=== PATIENT | female | born 1990 | race Caucasian/White ===

== ENCOUNTER → 2016-11-10 | Outpatient (CLI) | payer OTHER ==
[~2016-11-10] MED LIST: AMOXICILLIN500 MG PO; ANUSOL-HC25 MG RC; ATARAX,VISTARIL10 MG PO; ATARAX,VISTARIL50 MG PO; AUGMENTIN 875 M1 TA1 PO; AUGMENTIN 875 M1 TAB PO; AUGMENTIN 875875 MG PO; AUGMENTIN XR 101 TER PO; BACTRIM DS 8001 TAB PO; CELEXA20 MG PO; CELEXA40 MG PO; CIPRO250 MG PO; CIPRO500 MG PO; CLARINEX D PO; CLARITIN10 MG PO; CLEOCIN150 MG PO; COMPAZINE25 MG RC; CORTISPORIN 1%-10 M1 OT; DONNATAL1 TAB PO; FIORICET 325 MG1 TAB PO; HYDROCODONE BIT1 T11 PO; KEFLEX500 MG PO; KLONOPIN0.5 MG PO; MACROBID100 M1 PO; METHERGINE0.2 MG PO; MIRALAX POWDER255 GM PO; MOTRIN800 MG PO; NEXIUM40 MG PO; NKHM; NORCO 325 MG-51 TAB PO; NORCO 5-325 TA1 EACH PO; PANTOPRAZOLE SO40 MG PO; PANTOPRAZOLE40 M1 PO; PEN-VEE K500 MG PO; PERCOCET 325 MG1 TA6 PO; PERCOCET 325 MG1 TA7 PO; PREDNISONE10 MG PO; PREMARIN1.25 MG PO; PRENATAL1 TA1 PO; PRENATAL1 TA7 PO; PRENTAL 1 PLUS1 TAB PO; PRILOSEC40 MG PO; PROTONIX20 MG PO; RESTORIL15 MG PO; RESTORIL30 MG PO; TESSALON PERLE100 M1 PO; TOPAMAX25 M3 PO; VIBRAMYCIN100 MG PO; WELLBUTRIN75 MG PO; XANAX0.5 MG PO; XANAX1 MG PO; ZITHROMAX Z PA250 MG PO; ZITHROMAX250 MG PO; ZOFRAN ODT4 MG SL; ZOFRAN4 MG PO; Zofran4 MG PO
--- NOTE | ~2016-11-10 | PF ---
[place], [place] PULMONARY FUNCTION TEST [facility] [id number] UNIT #: [id number] ROOM: DOCTOR: LAQUITA CAMPOS MD,IRMA BIRTHDATE: [birth year] DOS: 11/10/2016 ORDERED BY: Rocio Lawrence NP HISTORY: The patient was recorded as a 25-year-old patient, female, height of 64 inches, weight of 226 pounds with BMI of 38.8. She reported symptoms of chronic nonproductive cough and history of bronchial asthma. There were no past tobacco use. SPIROMETRY: The FVC was recorded 3.74 liters as 99% of predicted value normal without any post-bronchodilator change. FEV1 was noted at 2.96 liters at 92% normal without any post-bronchodilator changes as well. Ratio of FEV1/FVC were recorded 79%. Flow volume loop for this patient, which was reviewed, was suggestive of mild obstructive airway pattern. The patient's lung volume, thoracic gas volume recorded as 72%, residual volume of 170%, total lung capacity 103%. The lung volumes were noted as normal. The patient's lung diffusion recorded 85%, normal. The patient's airway resistance, passive conductance were noted as normal with partial improvement seen after bronchodilators suggestive of obstructive lung disease. FINAL IMPRESSION: The test was noted consistent with possibility of mild reversible obstructive lung disease with current pulmonary function test. IRMA COELHO MD CM:PFREPORT:PULMONARY FUNCTION TEST [id number] IRMA CAMPOS MD
== END ==
LOC: CP 10:39
DX: R05 Cough (principal)

== ENCOUNTER 2017-06-01 17:30 | Emergency (ER) | payer OTHER ==
[~2017-06-01] VITALS: Ht 162.5 cm; Wt 108.9 kg
== END 2017-06-01 18:56 | disposition home or self-care (01) ==
LOC: ED 17:30
DX: S90.122A Contusion of left lesser toe(s) without damage to nail, initial encounter (principal); Z88.1 Allergy status to other antibiotic agents; Z88.6 Allergy status to analgesic agent; Z88.8 Allergy status to other drugs, medicaments and biological substances; Z79.899 Other long term (current) drug therapy; W22.8XXA Striking against or struck by other objects, initial encounter; Y93.89 Activity, other specified; Y92.89 Other specified places as the place of occurrence of the external cause; Y99.8 Other external cause status

== ENCOUNTER 2017-09-26 15:00 | Emergency (ER) | payer OTHER ==
[~2017-09-26] VITALS: Ht 162.5 cm; Wt 109.8 kg
[2017-09-26] MEDS ORDERED: ZITHROMAX250 MG PO (16:10)
== END 2017-09-26 16:16 | disposition home or self-care (01) ==
LOC: ED 15:00
DX: J01.90 Acute sinusitis, unspecified (principal); Z79.899 Other long term (current) drug therapy; Z88.5 Allergy status to narcotic agent; Z88.8 Allergy status to other drugs, medicaments and biological substances; Z91.018 Allergy to other foods; Z88.1 Allergy status to other antibiotic agents

== ENCOUNTER → 2018-02-06 | Outpatient (CLI) | payer OTHER | END | disposition home or self-care (01) | LOC: US 15:42 | DX: N94.6 Dysmenorrhea, unspecified (principal); R25.2 Cramp and spasm ==

== ENCOUNTER 2018-03-04 14:17 | Emergency (ER) | payer OTHER ==
[~2018-03-04] VITALS: Ht 162.5 cm; Wt 115.7 kg
[2018-03-04] MEDS ORDERED: NAPROSYN500 MG PO ×2 (14:26→14:37)
== END 2018-03-04 14:59 | disposition home or self-care (01) ==
LOC: ED 14:17
DX: S93.402A Sprain of unspecified ligament of left ankle, initial encounter (principal); R03.0 Elevated blood-pressure reading, without diagnosis of hypertension; Z79.899 Other long term (current) drug therapy; Z88.1 Allergy status to other antibiotic agents; Z88.5 Allergy status to narcotic agent; Z88.6 Allergy status to analgesic agent; X50.1XXA Overexertion from prolonged static or awkward postures, initial encounter; Y93.89 Activity, other specified; Y92.89 Other specified places as the place of occurrence of the external cause; Y99.9 Unspecified external cause status

== ENCOUNTER 2019-03-30 19:00 | Emergency (ER) | payer OTHER ==
[~2019-03-30] VITALS: Ht 162.5 cm; Wt 117.9 kg
[~2019-03-30 19:00] MED LIST changes: +AMOXICILLIN500 M2 PO; +NAPROSYN500 MG PO
[2019-03-30 19:27] LABS: BASO % 0.5 % (0.0-1.0); EOS # 0.1 10*3/uL (0.0-0.4); EOS % 0.9 % (1.0-4.0); HEMATOCRIT 46.6 % (37.0-47.0); HEMOGLOBIN 15.2 g/dl (12.0-16.0); LYMPH # 2.1 10*3/uL (1.3-4.4); MEAN CELL VOLUME 84.9 fl (81.0-99.0); MEAN CORPUSCULAR HGB 27.7 pg (27.0-31.0); MEAN CORPUSCULAR HGB CONC 32.6 g/dl (33.0-37.0); MEAN PLATELET VOLUME 8.3 fl (9.6-12.3); MONO # 0.5 10*3/uL (0.1-1.0); MONO % 6.9 % (3.0-9.0); NEUT # 4.8 10*3/uL (2.3-7.9); NEUT % 63.6 % (47.0-73.0); PLATELET COUNT AUTOMATED 304 10*3/uL (130-400); RED BLOOD COUNT 5.49 10*6/uL (4.10-5.10); RED CELL DISTRI WIDTH 13.7 % (0-14.5); WHITE BLOOD COUNT 7.5 10*3/uL (4.8-10.8)
[2019-03-30] MEDS ORDERED: SERTRALINE HYDR50 MG PO (19:28)
[2019-03-30 20:10] LABS: ALBUMIN 3.8 gm/dl (3.1-4.5); ALKALINE PHOSPHATASE 102 U/L (45-117); BUN 12 mg/dl (7-24); CHLORIDE 107 mmol/L (98-107); LIPASE 114 U/L (73-393); SGOT/AST 24 IU/L (3-35); SGPT/ALT 38 U/L (12-78); SODIUM 139 mmol/L (136-145); TOTAL PROTEIN 7.5 gm/dL (6.4-8.2)
[2019-03-30 20:24] LABS: BILIRUBIN NEGATIVE (NEGATIVE); BLOOD 3+ (NEGATIVE); CLARITY CLEAR (CLEAR); COLOR YELLOW (YELLOW); GLUCOSE NEGATIVE (NEGATIVE); KETONE NEGATIVE (NEGATIVE); LEUKO ESTERASE TRACE (NEGATIVE); NITRITE NEGATIVE (NEGATIVE); SPECIFIC GRAVITY 1.015 (1.005-1.030); UROBILINOGEN 0.2 E.U./dl (0.2-1.0)
[2019-03-30 20:33] LABS: BACTERIA 1+; RBC 31-40 rbc/hpf (0-2)
[2019-03-30] MEDS ORDERED: CIPRO500 MG PO (22:50)
== END 2019-03-30 22:56 | disposition home or self-care (01) ==
LOC: ED 19:00
PROVIDERS: Nurse Practitioner Family
DX: K52.9 Noninfective gastroenteritis and colitis, unspecified (principal); N39.0 Urinary tract infection, site not specified; Z79.899 Other long term (current) drug therapy; Z88.1 Allergy status to other antibiotic agents; Z88.6 Allergy status to analgesic agent; Z88.8 Allergy status to other drugs, medicaments and biological substances

== ENCOUNTER 2019-07-28 19:32 | Inpatient (IN) | payer OTHER ==
[~2019-07-28] VITALS: Ht 162.6 cm; Wt 122.9 kg
[~2019-07-28 19:32] MED LIST changes: +SERTRALINE HYDR50 MG PO
[2019-07-28 19:35] VITALS: BP 154/84
[2019-07-28] MEDS ORDERED: MIRENA1 EAC1 IY (19:37)
[2019-07-28] MEDS ORDERED: ZANTAC 150150 MG PO (19:37)
[2019-07-28 19:55] LABS: BILIRUBIN NEGATIVE (NEGATIVE); BLOOD TRACE-INTACT (NEGATIVE); CLARITY CLEAR (CLEAR); COLOR YELLOW (YELLOW); GLUCOSE NEGATIVE (NEGATIVE); KETONE NEGATIVE (NEGATIVE); LEUKO ESTERASE NEGATIVE (NEGATIVE); NITRITE NEGATIVE (NEGATIVE); PH 5.5 (5.0-9.0); SPECIFIC GRAVITY >= 1.030 (1.005-1.030); UROBILINOGEN 0.2 E.U./dl (0.2-1.0)
[2019-07-28 20:05] LABS: BACTERIA 1+; RBC 0-2 rbc/hpf (0-2)
[2019-07-28 20:06] LABS: MUCOUS TRACE
[2019-07-28 20:17] LABS: BASO # 0.1 10*3/uL (0.0-0.1); BASO % 0.5 % (0.0-1.0); EOS % 0.3 % (1.0-4.0); LYMPH # 2.2 10*3/uL (1.3-4.4); MEAN CELL VOLUME 84.5 fl (81.0-99.0); MEAN CORPUSCULAR HGB 28.2 pg (27.0-31.0); MEAN CORPUSCULAR HGB CONC 33.3 g/dl (33.0-37.0); MEAN PLATELET VOLUME 8.3 fl (9.6-12.3); MONO # 0.7 10*3/uL (0.1-1.0); MONO % 6.4 % (3.0-9.0); NEUT % 72.6 % (47.0-73.0); PLATELET COUNT AUTOMATED 313 10*3/uL (130-400); RED BLOOD COUNT 4.97 10*6/uL (4.10-5.10); RED CELL DISTRI WIDTH 14.1 % (0-14.5)
[2019-07-28 20:31] LABS: ALBUMIN 3.7 gm/dl (3.1-4.5); ALKALINE PHOSPHATASE 114 U/L (45-117); BUN 9 mg/dl (7-24); CHLORIDE 109 mmol/L (98-107); CREATININE 0.91 mg/dL (0.55-1.02); LIPASE 179 U/L (73-393); POTASSIUM 3.4 mmol/L (3.5-5.1); SGOT/AST 17 IU/L (3-35); SGPT/ALT 36 U/L (12-78); SODIUM 139 mmol/L (136-145); TOTAL PROTEIN 7.6 gm/dL (6.4-8.2)
--- NOTE | 2019-07-28 23:27 | NUR ---
PT REPORTS FEELING FLUSHED AND HOT.REDNESS NOTED TO PT FACE.
[2019-07-28 23:29] VITALS: BP 161/77
[2019-07-29 01:30] VITALS: BP 119/91
[2019-07-29 01:35] VITALS: BP 119/91
--- NOTE | 2019-07-29 01:35 | NUR ---
Time: 134 A 28 year old FEMALE admitted to 4E under services of RUSSEL HASSAN DO. Pt. arrived via bed from ER. Chief complaint: COLITIS. JOSH ABRAHAM
[2019-07-29] MEDS ORDERED: ZYRTEC10 MG PO (01:45)
--- NOTE | 2019-07-29 02:18 | NUR ---
Time: 129 A 28 year old FEMALE admitted to under services of RUSSEL HASSAN DO. Pt. arrived via CART FROM ER,CHIEF COMPLAIN, DIARHEA, ABDOMINAL PAIN AND ELEVATED TEMP. MATT WILKS
--- NOTE | 2019-07-29 04:15 | NUR ---
Patient sleeping. Respirations relaxed and easy. Siderails up 2. [place] on, bed in low position,call light within reach. MATT WILKS
--- NOTE | 2019-07-29 05:03 | NUR ---
PATIENT C/O OF PAIN TO RIGHT HAND IV SITE, NO REDNESS OR SWELLING NOTED, HOWEVE IV WAS ALARMING MULTIPLE TIMES, PLACED NEW IV IN LEFT FOREARM, PATIENT TOLERATED WELL.
--- NOTE | 2019-07-29 07:13 | NUR ---
CALL PLACED TO DR. HAMMOND, ADVISED OF CONSULT, ORDERS RECEIVED AND ENTERED FOR CLEAR LIQUID DIET THROUGH BREAKFAST TOMORROW.
[2019-07-29 08:00] VITALS: BP 111/62
[2019-07-29 12:00] VITALS: BP 128/69
[2019-07-29 16:00] VITALS: BP 127/71
--- NOTE | 2019-07-29 16:42 | NUR ---
IMODIUM GIVEN FOR C/O DIARRHEA. WILL MONITOR.
--- NOTE | 2019-07-29 16:50 | NUR ---
TYLENOL GIVEN FOR C/O HEADACHE. WILL MONITOR.
--- NOTE | 2019-07-29 18:00 | NUR ---
TYLENOL EFFECTIVE PER PT
--- NOTE | 2019-07-29 19:15 | NUR ---
ARRIVED ON SHIFT, INTRODUCED TO PATIENT, BEDSIDE REPORT RECEIVED. WHTE BOARD UPDATED, NO NEEDS VOICED.
[2019-07-29 20:00] VITALS: BP 114/64
--- NOTE | 2019-07-29 23:17 | NUR ---
PATIENT C/O HEADACHE TYLENOL 650 MG GIVEN
--- NOTE | 2019-07-29 23:40 | NUR ---
24 HR chart check completed.
[2019-07-30] VITALS: BP 123/76
--- NOTE | 2019-07-30 00:16 | NUR ---
PATIENT RESTING QUIETLY WITH EYES CLOSED, NO NON VERBAL S/S OF PAIN. TYLENOL EFFECTIVE.
--- NOTE | 2019-07-30 05:21 | NUR ---
PATIENT REQUESTING TYLENOL FOR HEAD AND NECK PAIN 04/16, ALSO CONTINUES WITH DIARHEA STOOLS MEDICATED WITH IMMODIUM.
--- NOTE | 2019-07-30 06:21 | NUR ---
GOOD RELIEDF FROM TYLENOL AND IMMODIUM GIVEN X 1 HOUR AGO, EVIDENCED BY PATIENTS NECK PAIN 3/10, AND DECREASE LOOS STOOLS.
[2019-07-30 07:06] LABS: BASO % 0.6 % (0.0-1.0); EOS # 0.1 10*3/uL (0.0-0.4); EOS % 2.1 % (1.0-4.0); HEMATOCRIT 35.1 % (37.0-47.0); HEMOGLOBIN 11.4 g/dl (12.0-16.0); LYMPH % 37.3 % (27.0-41.0); MEAN CELL VOLUME 85.6 fl (81.0-99.0); MEAN CORPUSCULAR HGB 27.8 pg (27.0-31.0); MEAN CORPUSCULAR HGB CONC 32.5 g/dl (33.0-37.0); MEAN PLATELET VOLUME 8.5 fl (9.6-12.3); MONO # 0.5 10*3/uL (0.1-1.0); MONO % 9.9 % (3.0-9.0); NEUT # 2.7 10*3/uL (2.3-7.9); NEUT % 49.5 % (47.0-73.0); PLATELET COUNT AUTOMATED 234 10*3/uL (130-400); RED CELL DISTRI WIDTH 14.3 % (0-14.5); WHITE BLOOD COUNT 5.4 10*3/uL (4.8-10.8)
[2019-07-30 07:24] LABS: BUN 4 mg/dl (7-24); CHLORIDE 111 mmol/L (98-107); CHOLESTEROL 129 mg/dL (<200); CREATININE 0.71 mg/dL (0.55-1.02); FREE T4 1.08 ng/dl (0.76-1.46); HDL CHOLESTEROL 32 mg/dl (40-60); LDL CHOLESTEROL 72 mg/dL (9-159); PHOSPHOROUS 2.4 mg/dL (2.5-4.9); POTASSIUM 3.4 mmol/L (3.5-5.1); SODIUM 138 mmol/L (136-145); TRIGLYCERIDES 125 mg/dl (<150); VLDL CHOLESTEROL 25 mg/dL (6-40)
[2019-07-30 08:00] VITALS: BP 131/66
[2019-07-30 08:09] LABS: ACT PARTIAL THROMBO TIME 30.8 SECONDS (20.0-32.1)
[2019-07-30 08:19] LABS: VITAMIN D, 25-HYDROXY 22.8 ng/mL (30-100)
--- NOTE | 2019-07-30 09:00 | NUR ---
[employer] G[employer] in to talk to patient. Patient states lives at home with daughter. There are few steps in the home. Physician: frankie john [facility]acy: [facility] Home health services: none Patient's level of ADLs: INDEPENDENT Patient has working utilities: all working DME: none Follow-up physician's appointment after d/c: will be made by hospitalist nurse director upon discharge Does patient want to access PORTAL?: no Discharge plan discussed with patient, she lives at home with her daughter, she is independent in adls and ambulation, she states she will return home when able and denies any home needs. MANASA GRACIA
--- NOTE | 2019-07-30 09:41 | NUR ---
1000 AM NEDS TO BE GIVEN AT A LATER TIME, PT NPO FOR SURGERY.
[2019-07-30 12:00] VITALS: BP 122/70
[2019-07-30 16:00] VITALS: BP 130/68
--- NOTE | 2019-07-30 19:41 | NUR ---
DR. HAMMOND CALLED AND INFORMED OF NEW ORDERS TO PLACE. ORDERS IN [place] PER WISHES.
[2019-07-30 20:00] VITALS: BP 133/71
--- NOTE | 2019-07-30 20:12 | NUR ---
INFORMED THAT UNCAPPED INSULIN NEEDLE WAS FOUND IN PATIENTS BED BY SURGERY TEAM WHEN BEING MOVED TO OR. INFORMED THAT INCIDENT REPORT WILL BE DONE AND NURSING INSTRUCTOR OF [place] JARVIS WAS MADE AWARE. STATED TO ORDER SERUM TOXICOLOGY.
--- NOTE | 2019-07-30 21:56 | NUR ---
INFORMED BY LAB THAT 10-PANEL DRUG SCREEN IS A SEND OUT. INFORMED , STATED TO CHANGE TO URINE.
[2019-07-30 23:09] LABS: URINE AMPHETAMINES < 1000 (1000ng/ml); URINE BARBITURATES < 200 (200ng/ml); URINE BENZODIAZEPINES > 200 (200ng/ml); URINE CANNABINOIDS (THC) < 50 (50ng/ml); URINE COCAINE < 300 (300ng/ml); URINE METHADONE < 300 (300ng/ml); URINE OPIATES < 300 (300ng/ml)
[2019-07-30 23:13] LABS: URINE PHENCYCLIDINE < 25 (25ng/ml)
[2019-07-31] VITALS: BP 109/55
--- NOTE | 2019-07-31 05:46 | NUR ---
AWARE OF UDS RESULTS. NO NEW ORDERS RECEIVED AT THIS TIME.
[2019-07-31 07:23] LABS: BASO % 0.3 % (0.0-1.0); EOS # 0.1 10*3/uL (0.0-0.4); EOS % 1.7 % (1.0-4.0); HEMATOCRIT 36.2 % (37.0-47.0); HEMOGLOBIN 12.1 g/dl (12.0-16.0); LYMPH # 2.3 10*3/uL (1.3-4.4); LYMPH % 39.4 % (27.0-41.0); MEAN CELL VOLUME 83.6 fl (81.0-99.0); MEAN CORPUSCULAR HGB 27.9 pg (27.0-31.0); MEAN CORPUSCULAR HGB CONC 33.4 g/dl (33.0-37.0); MEAN PLATELET VOLUME 8.5 fl (9.6-12.3); MONO # 0.5 10*3/uL (0.1-1.0); MONO % 8.1 % (3.0-9.0); NEUT # 2.9 10*3/uL (2.3-7.9); PLATELET COUNT AUTOMATED 273 10*3/uL (130-400); RED BLOOD COUNT 4.33 10*6/uL (4.10-5.10); RED CELL DISTRI WIDTH 13.8 % (0-14.5); WHITE BLOOD COUNT 5.8 10*3/uL (4.8-10.8)
[2019-07-31 07:59] LABS: BUN 5 mg/dl (7-24); CHLORIDE 109 mmol/L (98-107); CREATININE 0.77 mg/dL (0.55-1.02); POTASSIUM 3.8 mmol/L (3.5-5.1); SODIUM 142 mmol/L (136-145)
[2019-07-31 08:00] VITALS: BP 118/63
--- NOTE | 2019-07-31 09:00 | NUR ---
case management visits with patient, patient hoping to be discharged home today, she denied any home needs
[2019-07-31] MEDS ORDERED: LACTINEX 0.2 MG1 TAB PO (10:39)
[2019-07-31] MEDS ORDERED: FLAGYL500 MG PO (10:39)
[2019-07-31] MEDS ORDERED: QUESTRAN LIGHT4 GM PO (10:39)
--- NOTE | 2019-07-31 11:17 | NUR ---
Another Multi-Disciplinary Team meeting was held on 07/31/19, for the purpose of discharge planning. to be discharged to home today, no home needs MANASA GRACIA
--- NOTE | 2019-07-31 12:28 | NUR ---
Discharge instructions reviewed with patient/family. Patient receptive and verbalizes understanding. Follow-up care arranged. Written instructions given to patient/family. Patient was educated on new prescriptions and follow up visits. Patient ambulated from unit with family members and all personal belongings accounted for. JONN WALLACE
== END 2019-07-31 13:38 | disposition home or self-care (01) | DRG 872 ==
LOC: ED 19:32 → 4E 07-29 00:14 → EDHOLD 07-29 00:14 → 4E 07-29 00:23
PROVIDERS: Internal Medicine; Physician Assistant; Student in an Organized Health Care Education/Training Program; ADMIT Family Medicine
PROC: 0DBE8ZX Excision of Large Intestine, Via Natural or Artificial Opening Endoscopic, Diagnostic (ICD-10-PCS; principal; 2019-07-30)
DX: A41.9 Sepsis, unspecified organism (principal); Z68.42 Body mass index [BMI] 45.0-49.9, adult; K52.9 Noninfective gastroenteritis and colitis, unspecified; E87.6 Hypokalemia; E87.8 Other disorders of electrolyte and fluid balance, not elsewhere classified; E66.01 Morbid (severe) obesity due to excess calories; F41.9 Anxiety disorder, unspecified; K63.89 Other specified diseases of intestine; F32.9 Major depressive disorder, single episode, unspecified; K57.90 Diverticulosis of intestine, part unspecified, without perforation or abscess without bleeding; K21.9 Gastro-esophageal reflux disease without esophagitis; Z88.8 Allergy status to other drugs, medicaments and biological substances; Z88.1 Allergy status to other antibiotic agents; Z88.5 Allergy status to narcotic agent; Z91.018 Allergy to other foods; Z88.6 Allergy status to analgesic agent; Z82.49 Family history of ischemic heart disease and other diseases of the circulatory system; Z80.8 Family history of malignant neoplasm of other organs or systems; Z81.8 Family history of other mental and behavioral disorders; Z83.79 Family history of other diseases of the digestive system; Z83.49 Family history of other endocrine, nutritional and metabolic diseases; Z79.899 Other long term (current) drug therapy

== ENCOUNTER 2019-11-18 13:04 | Emergency (ER) | payer OTHER ==
[~2019-11-18] VITALS: Ht 162.5 cm; Wt 111.1 kg
[~2019-11-18 13:04] MED LIST changes: +FLAGYL500 MG PO; +LACTINEX 0.2 MG1 TAB PO; +MIRENA1 EAC1 IY; +QUESTRAN LIGHT4 GM PO; +ZANTAC 150150 MG PO; +ZYRTEC10 MG PO
[2019-11-18] MEDS ORDERED: ZYRTEC10 MG PO (15:39)
[2019-11-18] MEDS ORDERED: AMOXICILLIN500 M2 PO (15:39)
[2019-11-18] MEDS ORDERED: FLONASE ALLERG9.9 ML NAS (15:39)
== END 2019-11-18 16:00 | disposition home or self-care (01) ==
LOC: ED 13:04
DX: J01.90 Acute sinusitis, unspecified (principal); J45.909 Unspecified asthma, uncomplicated; K21.9 Gastro-esophageal reflux disease without esophagitis; Z88.1 Allergy status to other antibiotic agents; Z88.5 Allergy status to narcotic agent; Z88.8 Allergy status to other drugs, medicaments and biological substances; Z91.018 Allergy to other foods; Z79.899 Other long term (current) drug therapy

== ENCOUNTER 2020-09-18 12:05 | Emergency (ER) | payer OTHER ==
[~2020-09-18] VITALS: Ht 162.5 cm; Wt 113.4 kg
[~2020-09-18 12:05] MED LIST changes: +FLONASE ALLERG9.9 ML NAS
[2020-09-18 13:09] LABS: BILIRUBIN Negative (Negative); BLOOD Negative (Negative); CLARITY Clear (Clear); COLOR Yellow (Yellow); GLUCOSE Negative (Negative); KETONE Negative (Negative); LEUKO ESTERASE Trace (Negative); NITRITE Negative (Negative); UROBILINOGEN 0.2 E.U./dl (0.0-1.0)
[2020-09-18 13:31] LABS: BACTERIA TRACE; EPITHELIAL CELLS 0-2
[2020-09-18 13:56] LABS: BASO % 0.6 % (0.0-1.0); EOS # 0.1 10*3/uL (0.0-0.4); EOS % 1.3 % (1.0-4.0); LYMPH # 2.6 10*3/uL (1.3-4.4); LYMPH % 37.8 % (27.0-41.0); MEAN CELL VOLUME 85.7 fl (81.0-99.0); MEAN CORPUSCULAR HGB 27.4 pg (27.0-31.0); MEAN PLATELET VOLUME 8.3 fl (9.6-12.3); MONO # 0.3 10*3/uL (0.1-1.0); MONO % 4.3 % (3.0-9.0); NEUT # 3.9 10*3/uL (2.3-7.9); NEUT % 55.9 % (47.0-73.0); PLATELET COUNT AUTOMATED 357 10*3/uL (130-400); RED BLOOD COUNT 5.25 10*6/uL (4.10-5.10); RED CELL DISTRI WIDTH 13.4 % (0-14.5)
[2020-09-18 14:13] LABS: ALBUMIN 3.9 gm/dl (3.1-4.5); ALKALINE PHOSPHATASE 97 U/L (45-117); BUN 8 mg/dl (7-24); CHLORIDE 108 mmol/L (98-107); CREATININE 0.91 mg/dL (0.55-1.02); LIPASE 162 U/L (73-393); POTASSIUM 3.6 mmol/L (3.5-5.1); SGOT/AST 13 IU/L (3-35); SGPT/ALT 29 U/L (12-78); SODIUM 142 mmol/L (136-145); TOTAL PROTEIN 7.5 gm/dL (6.4-8.2)
== END 2020-09-18 17:12 | disposition home or self-care (01) ==
LOC: ED 12:05
PROVIDERS: Physician Assistant
DX: R10.2 Pelvic and perineal pain (principal); Z88.8 Allergy status to other drugs, medicaments and biological substances; Z88.5 Allergy status to narcotic agent; Z79.899 Other long term (current) drug therapy; Z79.2 Long term (current) use of antibiotics

== ENCOUNTER → 2020-11-25 | Outpatient (CLI) | payer OTHER | END | disposition home or self-care (01) | LOC: COVID19 08:17 | PROVIDERS: ATTEND Nurse Practitioner Family | DX: R05 Cough (principal); R09.81 Nasal congestion; J34.89 Other specified disorders of nose and nasal sinuses; R11.11 Vomiting without nausea; Z20.822 Contact with and (suspected) exposure to COVID-19 ==

== ENCOUNTER 2021-07-20 16:55 | Emergency (ER) | payer OTHER ==
[~2021-07-20] VITALS: Ht 162.5 cm; Wt 115.7 kg
== END 2021-07-20 19:45 | disposition left against medical advice (07) ==
LOC: ED 16:55
DX: R11.2 Nausea with vomiting, unspecified (principal); R10.9 Unspecified abdominal pain; R19.7 Diarrhea, unspecified; Z53.21 Procedure and treatment not carried out due to patient leaving prior to being seen by health care provider

== ENCOUNTER 2021-07-22 11:18 | Inpatient (IN) | payer OTHER ==
[~2021-07-22] VITALS: Ht 162.5 cm; Wt 117.9 kg
[2021-07-22 12:08] VITALS: BP 133/83
[2021-07-22] MEDS ORDERED: CIPROFLOXACIN500 M4 PO (12:23)
[2021-07-22] MEDS ORDERED: METRONIDAZOLE500 M1 PO (12:23)
[2021-07-22 13:15] LABS: BASO % 0.4 % (0.0-1.0); EOS # 0.1 10*3/uL (0.0-0.4); EOS % 0.6 % (1.0-4.0); HEMATOCRIT 42.9 % (37.0-47.0); LYMPH # 2.8 10*3/uL (1.3-4.4); LYMPH % 30.3 % (27.0-41.0); MEAN CELL VOLUME 87.4 fl (81.0-99.0); MEAN CORPUSCULAR HGB 28.1 pg (27.0-31.0); MEAN CORPUSCULAR HGB CONC 32.2 g/dl (33.0-37.0); MEAN PLATELET VOLUME 8.4 fl (9.6-12.3); MONO # 0.5 10*3/uL (0.1-1.0); MONO % 5.5 % (3.0-9.0); NEUT # 5.8 10*3/uL (2.3-7.9); PLATELET COUNT AUTOMATED 305 10*3/uL (130-400); RED BLOOD COUNT 4.91 10*6/uL (4.10-5.10); RED CELL DISTRI WIDTH 13.6 % (0-14.5); WHITE BLOOD COUNT 9.3 10*3/uL (4.8-10.8)
[2021-07-22 13:21] LABS: BILIRUBIN Negative (Negative); BLOOD Negative (Negative); CLARITY Clear (Clear); COLOR Yellow (Yellow); GLUCOSE Negative (Negative); KETONE Negative (Negative); LEUKO ESTERASE 1+ (Negative); NITRITE Negative (Negative); PH 5.5 (4.5-8.0); SPECIFIC GRAVITY 1.015 (1.001-1.030); UROBILINOGEN 0.2 E.U./dl (0.0-1.0)
[2021-07-22 13:32] LABS: BACTERIA 2+
[2021-07-22 13:34] LABS: ALBUMIN 3.8 gm/dl (3.1-4.5); BUN 8 mg/dl (7-24); CHLORIDE 108 mmol/L (98-107); CREATININE 0.75 mg/dL (0.55-1.02); LIPASE 92 U/L (73-393); POTASSIUM 3.5 mmol/L (3.5-5.1); SGOT/AST 15 IU/L (3-35); SGPT/ALT 30 U/L (12-78); SODIUM 140 mmol/L (136-145)
[2021-07-22 13:35] LABS: ALKALINE PHOSPHATASE 82 U/L (45-117)
[2021-07-23] VITALS (8 sets, daily range): BP systolic 127–151; BP diastolic 67–84
[2021-07-23 06:35] LABS: BASO % 0.5 % (0.0-1.0); EOS # 0.1 10*3/uL (0.0-0.4); EOS % 0.9 % (1.0-4.0); HEMATOCRIT 38.4 % (37.0-47.0); LYMPH # 2.3 10*3/uL (1.3-4.4); LYMPH % 31.3 % (27.0-41.0); MEAN CELL VOLUME 86.7 fl (81.0-99.0); MEAN CORPUSCULAR HGB 27.5 pg (27.0-31.0); MEAN CORPUSCULAR HGB CONC 31.8 g/dl (33.0-37.0); MEAN PLATELET VOLUME 8.2 fl (9.6-12.3); MONO # 0.4 10*3/uL (0.1-1.0); MONO % 4.8 % (3.0-9.0); NEUT # 4.6 10*3/uL (2.3-7.9); NEUT % 62.1 % (47.0-73.0); PLATELET COUNT AUTOMATED 228 10*3/uL (130-400); RED BLOOD COUNT 4.43 10*6/uL (4.10-5.10); RED CELL DISTRI WIDTH 13.4 % (0-14.5); WHITE BLOOD COUNT 7.5 10*3/uL (4.8-10.8)
[2021-07-23 06:51] LABS: ALBUMIN 3.2 gm/dl (3.1-4.5); ALKALINE PHOSPHATASE 67 U/L (45-117); BUN 6 mg/dl (7-24); CHLORIDE 109 mmol/L (98-107); CHOLESTEROL 165 mg/dL (<200); LDL CHOLESTEROL 99 mg/dL (9-159); POTASSIUM 3.6 mmol/L (3.5-5.1); SGOT/AST 13 IU/L (3-35); SGPT/ALT 30 U/L (12-78); SODIUM 140 mmol/L (136-145); TRIGLYCERIDES 178 mg/dl (<150)
[2021-07-23 08:25] LABS: VITAMIN D, 25-HYDROXY 30.3 ng/mL (30-100)
[2021-07-23] MEDS ORDERED: IBU800 MG PO (11:35)
[2021-07-23] MEDS ORDERED: COLACE100 MG PO (11:35)
== END 2021-07-23 17:25 | disposition home or self-care (01) | DRG 710 ==
LOC: ED 11:18 → EDHOLD 15:40
PROVIDERS: Family Medicine; Physician Assistant; ADMIT Internal Medicine; ATTEND Internal Medicine
PROC: 0FT44ZZ Resection of Gallbladder, Percutaneous Endoscopic Approach (ICD-10-PCS; principal; 2021-07-23)
PROC: 3E0T3BZ Introduction of Anesthetic Agent into Peripheral Nerves and Plexi, Percutaneous Approach (ICD-10-PCS; 2021-07-23)
DX: A41.9 Sepsis, unspecified organism (principal); K80.00 Calculus of gallbladder with acute cholecystitis without obstruction; N39.0 Urinary tract infection, site not specified; F41.9 Anxiety disorder, unspecified; F32.9 Major depressive disorder, single episode, unspecified; E87.8 Other disorders of electrolyte and fluid balance, not elsewhere classified; K21.9 Gastro-esophageal reflux disease without esophagitis; E66.01 Morbid (severe) obesity due to excess calories; Z88.6 Allergy status to analgesic agent; Z88.5 Allergy status to narcotic agent; Z88.8 Allergy status to other drugs, medicaments and biological substances; Z82.49 Family history of ischemic heart disease and other diseases of the circulatory system; Z68.41 Body mass index [BMI] 40.0-44.9, adult

== ENCOUNTER → 2021-09-25 | Outpatient (CLI) | payer OTHER ==
[~2021-09-25] MED LIST changes: +CIPROFLOXACIN500 M4 PO; +COLACE100 MG PO; +IBU800 MG PO; +METRONIDAZOLE500 M1 PO
== END | disposition home or self-care (01) ==
LOC: US 00:14
PROVIDERS: ATTEND Nurse Practitioner Women's Health
DX: T83.32XD Displacement of intrauterine contraceptive device, subsequent encounter (principal); X58.XXXD Exposure to other specified factors, subsequent encounter

== ENCOUNTER → 2021-10-05 | Day surgery (SDC) | payer OTHER ==
[~2021-10-05] VITALS: Ht 162.5 cm; Wt 115.7 kg
[2021-10-05 09:45] VITALS: BP 125/71
[2021-10-05 10:58] VITALS: BP 92/49
[2021-10-05 11:13] VITALS: BP 101/63
[2021-10-05 11:28] VITALS: BP 128/82
== END | disposition home or self-care (01) ==
LOC: SDC 10-02 12:30
PROVIDERS: ATTEND Surgery
DX: R10.0 Acute abdomen (principal); K25.9 Gastric ulcer, unspecified as acute or chronic, without hemorrhage or perforation; K29.50 Unspecified chronic gastritis without bleeding; K21.00 Gastro-esophageal reflux disease with esophagitis, without bleeding; J45.909 Unspecified asthma, uncomplicated; F41.9 Anxiety disorder, unspecified; F32.9 Major depressive disorder, single episode, unspecified; Z20.822 Contact with and (suspected) exposure to COVID-19

== ENCOUNTER → 2021-12-04 | Outpatient (CLI) | payer OTHER | END | disposition home or self-care (01) | LOC: US 13:50 | PROVIDERS: ATTEND Nurse Practitioner Women's Health | DX: N83.201 Unspecified ovarian cyst, right side (principal); Z97.5 Presence of (intrauterine) contraceptive device ==

== ENCOUNTER → 2022-03-01 | Outpatient (CLI) | payer OTHER | END | disposition home or self-care (01) | LOC: MRI 08:56 | PROVIDERS: ATTEND Family Medicine | DX: M75.51 Bursitis of right shoulder (principal); G89.29 Other chronic pain ==

== ENCOUNTER → 2022-04-01 | Outpatient (CLI) | payer OTHER | END | disposition home or self-care (01) | LOC: RAD 08:40 | PROVIDERS: ATTEND Orthopaedic Surgery | DX: M25.511 Pain in right shoulder (principal) ==

== ENCOUNTER 2022-08-24 16:33 | Emergency (ER) | payer OTHER ==
[~2022-08-24] VITALS: Ht 162.5 cm; Wt 110.2 kg
[2022-08-24 17:09] LABS: BILIRUBIN Negative (Negative); BLOOD Negative (Negative); CLARITY Clear (Clear); COLOR Yellow (Yellow); GLUCOSE Negative (Negative); KETONE Negative (Negative); LEUKO ESTERASE 2+ (Negative); NITRITE Negative (Negative); SPECIFIC GRAVITY <= 1.005 (1.001-1.030); UROBILINOGEN 0.2 E.U./dl (0.0-1.0)
[2022-08-24 17:20] LABS: BASO # 0.1 10*3/uL (0.0-0.1); BASO % 0.6 % (0.0-1.0); EOS # 0.1 10*3/uL (0.0-0.4); EOS % 0.5 % (1.0-4.0); HEMATOCRIT 44.7 % (37.0-47.0); LYMPH # 2.4 10*3/uL (1.3-4.4); LYMPH % 24.9 % (27.0-41.0); MEAN CORPUSCULAR HGB 28.5 pg (27.0-31.0); MEAN CORPUSCULAR HGB CONC 33.1 g/dl (33.0-37.0); MEAN PLATELET VOLUME 8.4 fl (9.6-12.3); MONO # 0.6 10*3/uL (0.1-1.0); MONO % 5.9 % (3.0-9.0); NEUT # 6.6 10*3/uL (2.3-7.9); NEUT % 67.7 % (47.0-73.0); PLATELET COUNT AUTOMATED 332 10*3/uL (130-400); RED CELL DISTRI WIDTH 13.7 % (0-14.5); WHITE BLOOD COUNT 9.8 10*3/uL (4.8-10.8)
[2022-08-24 17:38] LABS: BACTERIA TRACE; EPITHELIAL CELLS 16-20
[2022-08-24 17:39] LABS: YEAST TRACE
[2022-08-24 17:47] LABS: ALKALINE PHOSPHATASE 80 U/L (45-117); BUN 9 mg/dl (7-24); CHLORIDE 110 mmol/L (98-107); CREATININE 0.98 mg/dL (0.55-1.02); LIPASE 196 U/L (73-393); POTASSIUM 3.6 mmol/L (3.5-5.1); SGOT/AST 12 IU/L (3-35); SGPT/ALT 35 U/L (12-78); SODIUM 143 mmol/L (136-145); TOTAL PROTEIN 6.9 gm/dL (6.4-8.2)
[2022-08-24] MEDS ORDERED: SEPTDS PO (19:15)
== END 2022-08-24 22:01 | disposition home or self-care (01) ==
LOC: ED 16:33
PROVIDERS: Physician Assistant
DX: N39.0 Urinary tract infection, site not specified (principal); Z88.1 Allergy status to other antibiotic agents; Z88.8 Allergy status to other drugs, medicaments and biological substances; Z79.899 Other long term (current) drug therapy; Z90.89 Acquired absence of other organs; Z98.890 Other specified postprocedural states

== ENCOUNTER 2022-10-07 15:39 | Emergency (ER) | payer OTHER ==
[~2022-10-07] VITALS: Wt 108.9 kg
[~2022-10-07 15:39] MED LIST changes: +SEPTDS PO
== END 2022-10-07 17:53 | disposition home or self-care (01) ==
LOC: ED 15:39
DX: J10.1 Influenza due to other identified influenza virus with other respiratory manifestations (principal); Z98.890 Other specified postprocedural states; Z79.899 Other long term (current) drug therapy; Z88.1 Allergy status to other antibiotic agents; Z88.5 Allergy status to narcotic agent

== ENCOUNTER → 2022-12-23 | Outpatient (CLI) | payer OTHER | END | disposition home or self-care (01) | LOC: LAB 12:24 | PROVIDERS: ATTEND Internal Medicine | DX: M25.471 Effusion, right ankle (principal); M77.31 Calcaneal spur, right foot ==

== ENCOUNTER → 2023-02-24 | Outpatient (CLI) | payer OTHER | END | disposition home or self-care (01) | LOC: US 01:55 | PROVIDERS: ATTEND Nurse Practitioner Women's Health | DX: R10.2 Pelvic and perineal pain (principal) ==

== ENCOUNTER → 2023-06-09 | Outpatient (CLI) | payer OTHER | END | disposition home or self-care (01) | LOC: RAD 11:04 | PROVIDERS: ATTEND Chiropractor | DX: M54.50 Low back pain, unspecified (principal); M54.2 Cervicalgia ==

== ENCOUNTER → 2024-03-23 | Outpatient (CLI) | payer OTHER ==
[2024-03-23 13:11] LABS: BASO # 0.1 10*3/uL (0.0-0.1); BASO % 0.6 % (0.0-1.0); EOS # 0.1 10*3/uL (0.0-0.4); HEMATOCRIT 43.7 % (37.0-47.0); LYMPH # 2.5 10*3/uL (1.3-4.4); MEAN CELL VOLUME 86.7 fl (81.0-99.0); MEAN CORPUSCULAR HGB 27.8 pg (27.0-31.0); MEAN PLATELET VOLUME 7.9 fl (9.6-12.3); MONO # 0.3 10*3/uL (0.1-1.0); NEUT # 5.3 10*3/uL (2.3-7.9); PLATELET COUNT AUTOMATED 304 10*3/uL (130-400); RED BLOOD COUNT 5.04 10*6/uL (4.10-5.10); RED CELL DISTRI WIDTH 13.3 % (0-14.5); WHITE BLOOD COUNT 8.2 10*3/uL (4.8-10.8)
[2024-03-23 13:45] LABS: ALKALINE PHOSPHATASE 80 U/L (46-116); BUN 10 mg/dl (9-23); CHLORIDE 104 mmol/L (98-107); CHOLESTEROL 203 mg/dL (<200); LDL CHOLESTEROL 133 mg/dL (9-159); POTASSIUM 3.7 mmol/L (3.4-5.1); SGPT/ALT 27 U/L (5-49); TRIGLYCERIDES 157 mg/dl (<150)
[2024-03-23 13:46] LABS: VITAMIN D, 25-HYDROXY 20.8 ng/mL (30-100)
== END ==
LOC: LAB 12:47
PROVIDERS: ATTEND Internal Medicine
DX: Z00.00 Encounter for general adult medical examination without abnormal findings (principal); E55.9 Vitamin D deficiency, unspecified; E53.8 Deficiency of other specified B group vitamins; Z68.41 Body mass index [BMI] 40.0-44.9, adult

== ENCOUNTER → 2025-03-06 | Outpatient (CLI) | payer OTHER | END | disposition home or self-care (01) | LOC: MAMMO 07:52 | PROVIDERS: ATTEND Nurse Practitioner Women's Health | DX: N64.4 Mastodynia (principal); N64.89 Other specified disorders of breast ==

== ENCOUNTER → 2025-04-15 | Day surgery (SDC) | payer OTHER ==
[~2025-04-15] VITALS: Ht 162.5 cm; Wt 112.5 kg
[~2025-04-15] MED LIST changes: +ACETAMINOPHEN 100 ML IV ONE; +Dexamethasone Sodium Phospha 4 MG/ML VIAL IV ONE; +Ketorolac Tromethamine 30 MG/ML VIAL IV ONE; +Lactated Ringer's Solution 1,000 ML IV ONE; +Lidocaine Hydrochloride 2% 5 ML SDV IM ONE; +Midazolam Hydrochloride 2 MG/2 ML VIAL IV ONE; +PROPOFOL 200 MG/20 ML VIAL IV ONE; +ROCURONIUM BROMIDE 100 MG/10 ML VIAL IV ONE; +SEVOFLURANE 250 ML BOT INH ONE; +SODIUM CHLORIDE 0.9% 100 ML IV ONE; +SUGAMMADEX SODIUM 200 MG/2 ML VIAL IV ONE; +Scopolamine 1 PATCH PATCH T ONE; +dexmedeTOMIDine HCL 200 MCG/2 ML VIAL IV ONE; +fentaNYL CITRATE 100 MCG/2 ML VIAL IV ONE
[2025-04-15 07:08] VITALS: BP 130/84
[2025-04-15 08:38] VITALS: BP 101/61
[2025-04-15 08:53] VITALS: BP 114/67
[2025-04-15 09:08] VITALS: BP 119/75
[2025-04-15 09:23] VITALS: BP 131/80
[2025-04-15 09:35] VITALS: BP 121/74
== END | disposition home or self-care (01) ==
LOC: SDC 04-11 08:45
PROVIDERS: ATTEND Obstetrics & Gynecology
DX: R10.2 Pelvic and perineal pain (principal); N83.292 Other ovarian cyst, left side; N83.291 Other ovarian cyst, right side; K21.9 Gastro-esophageal reflux disease without esophagitis; F41.9 Anxiety disorder, unspecified; F32.A Depression, unspecified; J45.909 Unspecified asthma, uncomplicated; Z90.49 Acquired absence of other specified parts of digestive tract; Z90.89 Acquired absence of other organs; Z87.440 Personal history of urinary (tract) infections; Z98.890 Other specified postprocedural states; Z79.899 Other long term (current) drug therapy; Z91.018 Allergy to other foods; Z88.5 Allergy status to narcotic agent; Z88.8 Allergy status to other drugs, medicaments and biological substances; Z82.49 Family history of ischemic heart disease and other diseases of the circulatory system

== ENCOUNTER → 2025-07-12 | Outpatient (CLI) | payer OTHER ==
[~2025-07-12] MED LIST changes: -ACETAMINOPHEN 100 ML IV ONE; -Dexamethasone Sodium Phospha 4 MG/ML VIAL IV ONE; -Ketorolac Tromethamine 30 MG/ML VIAL IV ONE; -Lactated Ringer's Solution 1,000 ML IV ONE; -Lidocaine Hydrochloride 2% 5 ML SDV IM ONE; -Midazolam Hydrochloride 2 MG/2 ML VIAL IV ONE; -PROPOFOL 200 MG/20 ML VIAL IV ONE; -ROCURONIUM BROMIDE 100 MG/10 ML VIAL IV ONE; -SEVOFLURANE 250 ML BOT INH ONE; -SODIUM CHLORIDE 0.9% 100 ML IV ONE; -SUGAMMADEX SODIUM 200 MG/2 ML VIAL IV ONE; -Scopolamine 1 PATCH PATCH T ONE; -dexmedeTOMIDine HCL 200 MCG/2 ML VIAL IV ONE; -fentaNYL CITRATE 100 MCG/2 ML VIAL IV ONE
[2025-07-12 12:07] LABS: BASO # 0.1 10*3/uL (0.0-0.1); BASO % 0.7 % (0.0-1.0); EOS # 0.1 10*3/uL (0.0-0.4); EOS % 0.7 % (1.0-4.0); MEAN CELL VOLUME 85.4 fl (81.0-99.0); MEAN CORPUSCULAR HGB 27.7 pg (27.0-31.0); MEAN PLATELET VOLUME 8.1 fl (9.6-12.3); MONO # 0.5 10*3/uL (0.1-1.0); MONO % 5.2 % (3.0-9.0); NEUT # 6.1 10*3/uL (2.3-7.9); NEUT % 69.0 % (47.0-73.0); NUCLEATED RED BLOOD CELL 0.0 % (0.0-0.0); NUCLEATED RED BLOOD CELL 0.0 10*3/uL (0.0-0.0); PLATELET COUNT AUTOMATED 322 10*3/uL (130-400); RED CELL DISTRI WIDTH 13.4 % (0-14.5)
[2025-07-12 12:30] LABS: BUN 9 mg/dl (9-23); FREE T4 1.18 ng/dl (0.89-1.76); LDL CHOLESTEROL 116 mg/dL (9-159); SGPT/ALT 25 U/L (5-49)
[2025-07-12 12:31] LABS: VITAMIN D, 25-HYDROXY 23.6 ng/mL (30-100)
[2025-07-15 15:07] LABS: ANTI-DSDNA ANTIBODIES <1 IU/mL (0-9); ANTI-RNP ANTIBODIES <0.2 AI (0.0-0.9); ANTICHROMATIN ANTIBODIES <0.2 AI (0.0-0.9); ANTISCLERODERMA-70 AB <0.2 AI (0.0-0.9)
== END | disposition home or self-care (01) ==
LOC: LAB 11:36
PROVIDERS: ATTEND Internal Medicine
DX: E78.5 Hyperlipidemia, unspecified (principal); E56.9 Vitamin deficiency, unspecified; E66.9 Obesity, unspecified; M25.50 Pain in unspecified joint; Z00.00 Encounter for general adult medical examination without abnormal findings

== ENCOUNTER 2025-08-14 15:16 | Emergency (ER) | payer OTHER ==
[~2025-08-14] VITALS: Ht 162.5 cm; Wt 115.7 kg
[2025-08-14] MEDS ORDERED: DULOXETINE HCL20 MG PO (15:23)
[2025-08-14] MEDS ORDERED: diphenhydrAMINE hydrochloride 50 MG/ML VIAL IV ONE (15:40)
[2025-08-14] MEDS ORDERED: COMPAZINE10 M1 PO (17:02)
[2025-08-14] MEDS ORDERED: BUTALB-ACETAMI1 EACH PO (17:02)
== END 2025-08-14 18:46 | disposition home or self-care (01) ==
LOC: ED 15:16
DX: G43.909 Migraine, unspecified, not intractable, without status migrainosus (principal); M54.2 Cervicalgia; J45.909 Unspecified asthma, uncomplicated; K21.9 Gastro-esophageal reflux disease without esophagitis; F41.9 Anxiety disorder, unspecified; F32.A Depression, unspecified; Z98.890 Other specified postprocedural states; Z90.89 Acquired absence of other organs; Z88.5 Allergy status to narcotic agent; Z88.1 Allergy status to other antibiotic agents; Z88.8 Allergy status to other drugs, medicaments and biological substances